=== PATIENT | female | born 1955 | race Caucasian/White ===

== ENCOUNTER → 2017-03-13 | Outpatient (CLI) | payer OTHER ==
[2017-03-13 14:10] LABS: Stool Occult Bld Immuno 1 Negative (NEGATIVE)
[2017-03-13 14:11] LABS: Stool Occult Bld Immuno 2 Negative (NEGATIVE)
== END | disposition home or self-care (01) ==
LOC: LAB SHORT 08:40 → OLS 08:40
PROVIDERS: Internal Medicine Gastroenterology
DX: Z12.11 Encounter for screening for malignant neoplasm of colon (principal); Z13.818 Encounter for screening for other digestive system disorders
CPT/HCPCS: G0328

== ENCOUNTER → 2017-10-17 | Outpatient (CLI) | payer OTHER ==
[2017-10-21 14:09] LABS: HPV 16 Negative (Negative); HPV 18 Negative (Negative); HPV OTHER HR TYPES Negative (Negative)
== END | disposition home or self-care (01) ==
LOC: LAB SHORT 10:05 → LAB 10:05
PROVIDERS: Obstetrics & Gynecology Gynecology
DX: Z12.72 Encounter for screening for malignant neoplasm of vagina (principal)
CPT/HCPCS: 87624; G0123

== ENCOUNTER 2018-09-18 09:35 | Day surgery (SDC) | payer OTHER ==
[~2018-09-18] VITALS: Ht 160 cm; Wt 88.4 kg
[2018-09-18] MEDS ORDERED: TIZA4 (10:09)
[2018-09-18] MEDS ORDERED: METF500 (10:09)
[2018-09-18] MEDS ORDERED: CARV3.125 (10:09)
[2018-09-18] MEDS ORDERED: TRADJENTA5 MG (10:22)
[2018-09-18] MEDS ORDERED: TIMO.5OPSO (10:23)
[2018-09-18] MEDS ORDERED: LATANOPROST 0.7.5 ML (10:23)
[2018-09-18] MEDS ORDERED: GABA800 (10:24)
[2018-09-18] MEDS ORDERED: OMEP20ER (10:26)
[2018-09-18] MEDS ORDERED: AMLO10 (10:26)
[2018-09-18] MEDS ORDERED: GLIP5 (10:26)
[2018-09-18] MEDS ORDERED: HYDR100 (10:26)
[2018-09-18] MEDS ORDERED: Loratadine10 MG (10:27)
[2018-09-18] MEDS ORDERED: IBUP100S (10:28)
[2018-09-18] MEDS ORDERED: Aspir 8181 MG (10:28)
[2018-09-18] MEDS ORDERED: Simvastatin20 MG (10:28)
[2018-09-18] MEDS ORDERED: MELATONIN5 M1 (10:29)
[2018-09-18] MEDS ORDERED: FISH OIL 1,2001 EACH (10:29)
[2018-09-18] MEDS ORDERED: ASCO500 (10:30)
== END 2018-09-18 11:16 | disposition home or self-care (01) ==
LOC: ORSCSDS 09:35
PROVIDERS: Internal Medicine Gastroenterology
PROC: 0DBM8ZX Excision of Descending Colon, Via Natural or Artificial Opening Endoscopic, Diagnostic (ICD-10-PCS; principal; 2018-09-18 10:45)
PROC: 0DBP8ZX Excision of Rectum, Via Natural or Artificial Opening Endoscopic, Diagnostic (ICD-10-PCS; principal; 2018-09-18 10:45)
DX: Z12.11 Encounter for screening for malignant neoplasm of colon (principal); D12.4 Benign neoplasm of descending colon; K62.1 Rectal polyp; K57.30 Diverticulosis of large intestine without perforation or abscess without bleeding; K64.8 Other hemorrhoids; I10 Essential (primary) hypertension; G47.33 Obstructive sleep apnea (adult) (pediatric); Z87.891 Personal history of nicotine dependence; E11.9 Type 2 diabetes mellitus without complications; Z79.899 Other long term (current) drug therapy; Z79.82 Long term (current) use of aspirin
CPT/HCPCS: 82947; 88305; J2704; J7120

== ENCOUNTER → 2018-09-22 | Outpatient (CLI) | payer OTHER ==
[~2018-09-22] MED LIST: AMLO10; ASCO500; Aspir 8181 MG; CARV3.125; FISH OIL 1,2001 EACH; GABA800; GLIP5; HYDR100; IBUP100S; LATANOPROST 0.7.5 ML; Loratadine10 MG; MELATONIN5 M1; METF500; OMEP20ER; Simvastatin20 MG; TIMO.5OPSO; TIZA4; TRADJENTA5 MG
== END | disposition home or self-care (01) ==
LOC: PLD 15:00 → LAB SHORT 15:00
DX: L73.9 Follicular disorder, unspecified (principal)
CPT/HCPCS: 88305

== ENCOUNTER → 2018-12-09 | Outpatient (CLI) | payer OTHER ==
[2018-12-11 14:07] LABS: HPV 16 Negative (Negative); HPV 18 Negative (Negative); HPV OTHER HR TYPES Negative (Negative)
== END | disposition home or self-care (01) ==
LOC: LAB 17:52 → LAB SHORT 17:52
PROVIDERS: Obstetrics & Gynecology Gynecology
DX: Z91.89 Other specified personal risk factors, not elsewhere classified (principal)
CPT/HCPCS: 87624; G0123

== ENCOUNTER → 2020-03-29 | Outpatient (CLI) | payer OTHER ==
[2020-03-29 15:19] LABS: Appearance, Urine Clear (Clear); Bilirubin, Urine Neg (Neg); Blood, Urine Neg (Neg); Color, Urine Yellow (P-Yellow); Glucose Qualitative, Urine Neg (Neg); Ketones, Urine Neg (Neg); Leukocyte Esterase, Urine 1+ (Neg); Nitrite, Urine Neg (Neg); Protein, Urine Neg (Neg); Specific Gravity, Urine 1.015 (1.003-1.022); Urobilinogen, Urine NORM (Normal)
[2020-03-29 15:34] LABS: Bacteria Not Seen /hpf; Red Blood Cells, Urine 0-2 /hpf (0-2); Squamous Epithelial Cells Rare /hpf (Few)
[2020-03-29 15:42] LABS: Creatinine, Urine Random 80.4 mg/dL (27.00-270.00); Protein, Urine Random 15.7 mg/dL (0.0-11.9); Protein/Creat Ratio, Ur Random 0.2
== END | disposition home or self-care (01) ==
LOC: LAB SHORT 12:15 → LAB 12:15
PROVIDERS: Internal Medicine
DX: I10 Essential (primary) hypertension (principal)
CPT/HCPCS: 81001; 82570; 84156

== ENCOUNTER → 2023-10-27 | Outpatient (CLI) | payer OTHER ==
[~2023-10-27] MED LIST changes: +ASPI81CH; +CALCA500S6; +CENTRUM SILVER1 EAC2; +CETI5; +CODACE30; +DOXA2; +DULO60; +FIBER500 MG; +GLIP10; +HYDCHL25; +IBUP600; +LATA.005SO; +MONT5TCH; +NEBI5; +NORVASC5 MG; +SUPER B-50 COM1 EACH; +TELM80; +TIMO10T; +VITAMIN D310 MC4; +Ventolin5 MG/1 ML; +Vitamin C100 M1; +ZOCOR20 MG
== END ==
LOC: LAB 15:25 → LAB SHORT 15:25
DX: R30.0 Dysuria (principal); R35.0 Frequency of micturition
CPT/HCPCS: 87077; 87086; 87186